=== PATIENT | female | born 1970 | race Two or more races ===

== ENCOUNTER 2018-03-07 20:00 | Emergency (ER) | payer OTHER ==
[~2018-03-07] VITALS: Ht 177.8 cm; Wt 68.0 kg
[~2018-03-07 20:00] MED LIST: UNOBMED
[2018-03-07 20:15] VITALS: BP 104/71
--- NOTE | 2018-03-07 20:15 | Emergency Room Report ---
History of Present Illness General Chief Complaint: Altered Level of Consciousness Source: Patient, EMS Present Illness HPI 47-year-old female brought in by [facility] fire Department for an found down in the street, no witnesses as to how she had gotten there, and we have no other information. Patient arouses to painful stimulus but will not speak at all. Allergies: Coded Allergies: No Known Allergies (Unverified , 10/22/15) UNABLE TO ASSESS (Unverified , 03/07/18) patient and ems unable to provide information. Patient History Limited by: medical condition Past Medical History: see triage record Last Menstrual Period: unable to obtain Now: No - unable to obtain Reviewed Nursing Documentation: PMH: Agreed; PSxH: Agreed Nursing Documentation-PMH Past Medical History Deferred: Patient Unconscious Past Medical History: Deferred Review of Systems All Other Systems: negative except mentioned in HPI Physical Exam Vital Signs Date Time Temp Pulse Resp B/P (MAP) Pulse Ox O2 Delivery O2 Flow Rate FiO2 03/07/18 19:51 97.3 84 16 98/66 100 Room Air Sp02 EP Interpretation: reviewed, normal General Appearance: no apparent distress, alert, non-toxic Head: normocephalic Eyes: bilateral eye normal inspection, bilateral eye PERRL, bilateral eye EOMI ENT: normal ENT inspection, hearing grossly normal, normal pharynx, no angioedema, dry mucus membranes Neck: normal inspection, full range of motion, supple, supple/symm/no masses Respiratory: chest non-tender, lungs clear, normal breath sounds, chest symmetrical, palpation of chest normal Cardiovascular #1: normal peripheral pulses, regular rate, rhythm, no edema, no gallop, no JVD, no murmur, no rub Cardiovascular #2: 2+ radial (R), 2+ radial (L) Gastrointestinal: normal inspection, non tender, soft, no mass, no guarding, no rebound Rectal: deferred Genitourinary: normal inspection, no CVA tenderness Musculoskeletal: back normal, gait/station normal, normal range of motion, non- tender, no calf tenderness Neurologic: responsive, motor strength/tone normal - Withdraws appropriately to painful stimulus in all 4 extremities, sensory intact Psychiatric: other - Unable to assess Skin: normal color, no rash, warm/dry, normal turgor Lymphatic: no adenopathy Medical Decision Making Diagnostic Impression: Primary Impression: Altered level of consciousness ER Course Patient found to have an alcohol level of 200, CT head normal, chest x-ray normal, labs and urine normal otherwise as well. Vital signs normal, EKG, rhythm strips normal. No signs of trauma, will discharge when sober, diagnosis acute alcohol intoxication. EKG Diagnostic Results EKG Time: 20:03 EP Interpretation: No ST-T segment changes, no T-wave inversions, normal QTC of 473 ms Rate: normal Rhythm: NSR ST Segments: no acute changes ASA given to the pt in ED: No Rhythm Strip Diag. Results Rhythm Strip Time: 20:14 EP Interpretation: yes Rate: 68 Rhythm: NSR, no PVC's, no ectopy Chest X-Ray Diagnostic Results Chest X-Ray Diagnostic Results : Chest X-Ray Ordered: Yes # of Views/Limited/Complete: 1 View Indication: Other - AMS EP Interpretation: Yes Interpretation: no consolidation, no effusion, no pneumothorax, no acute cardiopulmonary disease Impression: No acute disease Electronically Signed by: Roger Santo MD CT/MRI/US Diagnostic Results CT/MRI/US Diagnostic Results : Imaging Test Ordered: ct head Impression no acute dz Last Vital Signs Date Time Temp Pulse Resp B/P (MAP) Pulse Ox O2 Delivery O2 Flow Rate FiO2 03/07/18 19:51 97.3 84 16 98/66 100 Room Air Disposition: HOME, SELF-CARE ROGER SANTO M.D Mar 07, 2018 20:14
[2018-03-07 20:57] LABS: BASOPHILS % (AUTO) 1.3 % (0.0-2.0); EOSINOPHILS % (AUTO) 1.9 % (0.0-3.0); HEMATOCRIT 38.2 % (37.0-47.0); HEMOGLOBIN 12.4 G/DL (12.0-16.0); LYMPHOCYTES % (AUTO) 39.8 % (20.0-45.0); MEAN CORPUSCULAR VOLUME 90 FL (80-99); MONOCYTES % (AUTO) 8.2 % (1.0-10.0); NEUTROPHILS % (AUTO) 48.8 % (45.0-75.0); PLATELET COUNT 281 K/UL (150-450); RED BLOOD COUNT 4.26 M/UL (4.20-5.40); RED CELL DISTRIBUTION WIDTH 11.6 % (11.6-14.8); WHITE BLOOD COUNT 6.1 K/UL (4.8-10.8)
[2018-03-07 21:05] LABS: ANION GAP 9 mmol/L (5-15); BLOOD UREA NITROGEN 12 mg/dL (7-18); CALCIUM 8.2 MG/DL (8.5-10.1); CARBON DIOXIDE 29 MMOL/L (21-32); CHLORIDE 108 MMOL/L (98-107); CREATININE 1.3 MG/DL (0.55-1.30); POTASSIUM 3.6 MMOL/L (3.5-5.1); SODIUM 146 MMOL/L (136-145)
[2018-03-07 21:08] LABS: AMMONIA < 10 umol/L (11-32)
[2018-03-07 21:10] LABS: ALANINE AMINOTRANSFERASE 19 U/L (12-78); ALBUMIN 3.8 G/DL (3.4-5.0); ALBUMIN/GLOBULIN RATIO 0.9 (1.0-2.7); ALKALINE PHOSPHATASE 77 U/L (46-116); ASPARTATE AMINO TRANSFERASE 21 U/L (15-37); BILIRUBIN,TOTAL 0.1 MG/DL (0.2-1.0)
[2018-03-07 21:26] LABS: APPEARANCE,URINE CLEAR; BILIRUBIN, URINE NEGATIVE (NEGATIVE); COLOR,URINE PALE YELLOW; GLUCOSE, URINE (UA) NEGATIVE (NEGATIVE); KETONES,URINE NEGATIVE (NEGATIVE); LEUKOCYTE ESTERASE ,URINE NEGATIVE (NEGATIVE); NITRITE,URINE NEGATIVE (NEGATIVE); PH,URINE 6 (4.5-8.0); PROTEIN,URINE NEGATIVE (NEGATIVE); UROBILINOGEN,URINE NORMAL MG/DL (0.0-1.0)
[2018-03-08 00:01] VITALS: BP 113/74
--- NOTE | 2018-03-08 08:55 | Diagnostic Imaging Report ---
Indication: Altered mental status Technique: Continuous helical CT scanning of the head was performed without intravenous contrast material. Axial and coronal 5 mm sections were generated. Radiation dose was minimized using automated exposure control Dose: Total Dose Length Product - DLP 1467.[address] Dose Index - CTDIvol(s) 70.38 mGy. Comparison: 10/22/2015 Findings: There is mild prominence to the cortical sulci, somewhat unusual for age, also evident previously. Normal size and configuration of the ventricles. Normal vickers-white differentiation. There is no shift of midline structures. No abnormal extra-axial fluid collections are noted. There is no evidence of intracerebral bleeding. No other abnormal high or low density areas are noted within the brain. . Visualized orbits and sinuses are unremarkable. The mastoids are clear. The calvarium is intact. Impression: Mildly prominent, for age, cerebral sulci Negative for acute intracranial bleed or mass effect The CT scanner at [facility] is accredited by the [employer] and the scans are performed using protocols designed to limit radiation exposure to as low as reasonably achievable to attain images of sufficient resolution adequate for diagnostic evaluation.
--- NOTE | 2018-03-08 09:58 | Diagnostic Imaging Report ---
Indication: Shortness of breath Technique: One view of the chest Comparison: none Findings: Lungs and pleural spaces are clear. Heart size is normal Impression: No acute process
--- NOTE | 2018-03-09 14:52 | Cardiology Report ---
APPROVED REPORT EKG Measurement Heart [id number] Normal sinus rhythm Normal ECG
== END 2018-03-08 00:01 | disposition home or self-care (01) ==
LOC: EDBD 20:00 → EMR 20:39
DX: R41.82 Altered mental status, unspecified (principal)
CPT/HCPCS: 36415; 70450; 71045; 80053; 80307; 80329; 81003; 82140; 82962; 84484; 85025; 93005; 96360; 99284